=== PATIENT | female | born 1985 | race Two or more races ===

== ENCOUNTER 2023-04-17 05:25 | Inpatient (IN) | payer MEDICAID, OTHER ==
[~2023-04-17] VITALS: Ht 162.6 cm; Wt 76.7 kg
[2023-04-17] MEDS ORDERED: CITA-144 PO (05:57)
[2023-04-17] MEDS ORDERED: DIAZ-328 PO (05:57)
[2023-04-17] MEDS ORDERED: QUET25TA PO (05:57)
[2023-04-17] MEDS ORDERED: QUEtiapine FUMARATE 25 MG TABLET PO ONE ×3 (07:00→21:30)
[2023-04-17] MEDS ORDERED: DiphenhydrAMINE HCL 25 MG CAPSULE PO ONE ×2 (07:00→22:45)
[2023-04-17] MEDS ORDERED: LORazepam 1 MG TABLET PO ONE (07:00)
[2023-04-17] MEDS ORDERED: HALOPERIDOL 5 MG TABLET PO PRN (09:30)
[2023-04-17] MEDS ORDERED: ZOLPIDEM TARTRATE 10 MG TABLET PO PRN (09:30)
[2023-04-17 11:32] LABS: BASOPHILS % (AUTO) 0.1 % (0.0-2.0); EOSINOPHILS % (AUTO) 1.1 % (1.0-6.0); HEMATOCRIT 37.3 % (36-46); LYMPHOCYTES # (AUTO) 2.3 K/uL (1.0-4.8); LYMPHOCYTES % (AUTO) 26.8 % (22.0-44.0); MEAN CORPUSCULAR HEMOGLOBIN 28.2 pg (26.0-34.0); MEAN CORPUSCULAR HGB CONC 32.1 G/dL (31.0-37.0); MEAN CORPUSCULAR VOLUME 88 fL (80-100); MONOCYTES # (AUTO) 0.8 K/uL (0.1-1.0); MONOCYTES % (AUTO) 9.6 % (2.0-9.0); NEUTROPHILS # (AUTO) 5.3 K/uL (1.8-7.7); NEUTROPHILS % (AUTO) 62.4 % (40.0-70.0); PLATELET COUNT (AUTO) 299 K/uL (150-450); RED BLOOD CELL COUNT(AUTO) 4.25 MIL/uL (4.00-5.20); RED CELL DISTRIBUTION WIDTH 16.8 % (11.5-14.5); WHITE BLOOD COUNT (AUTO) 8.5 K/uL (4.5-11.0)
[2023-04-17] MEDS: LORazepam 2 MG TABLET PO PRN ×2 (11:50→18:54)
[2023-04-17 11:53] LABS: ALCOHOL, BLOOD (SERUM) < 3 mg/dL (0-10)
[2023-04-17 12:15] LABS: ANION GAP 10 mmol/L (8-16); CARBON DIOXIDE 23 mmol/L (22-29); CHLORIDE 106 mmol/L (98-107); CREATININE 0.73 mg/dL (0.60-1.30); GLOMERULAR FILTR. RATE CALC > 60 mL/min (>60); GLUCOSE,RANDOM 95 mg/dL (70-110); POTASSIUM 3.7 mmol/L (3.5-5.1); SODIUM SERUM 139 mmol/L (136-145); UREA NITROGEN, BLOOD 7 mg/dL (7-18)
[2023-04-17 12:23] LABS: ALANINE AMINOTRANSFERASE 24 U/L (12-78); ALBUMIN 3.6 g/dL (3.4-5.0); ALKALINE PHOSPHATASE 106 U/L (46-116); ASPARTATE AMINOTRANSFERASE 18 U/L (15-37); BILIRUBIN,TOTAL 0.5 mg/dL (0.1-1.0)
[2023-04-17 12:48] LABS: COVID AG,FIA SOURCE NASAL SWAB
[2023-04-17 13:17] LABS: SARS-COV2 (COVID) ANTIGEN,FIA Negative (Negative)
[2023-04-17] MEDS ORDERED: QUET50TA24 PO (21:24)
[2023-04-17] MEDS ORDERED: LORazepam 2 MG TABLET PO ONE (22:45)
[2023-04-18 11:47] VITALS: BP 99/59; PULSE 68; RESP 18; TEMP 97.3; O2SAT 95
[2023-04-18] MEDS ORDERED: INFLUENZA VIRUS VACCINE QVS 2023-24 (6MO+)/PF 60 MCG/0.5 ML SYRINGE IM. ONE (13:15)
[2023-04-18] MEDS ORDERED: PNEUMOCOCCAL VACCINE POLYVALENT 0.5 ML SYRINGE [PPSV23] IM. ONE (13:15)
[2023-04-18] MEDS: LORazepam 2 MG TABLET PO PRN (14:00)
[2023-04-18] MEDS: LITHIUM CARBONATE 300 MG CAPSULE PO SCH (17:00)
[2023-04-18] MEDS: DIVALPROEX SODIUM 500 MG DR TABLET PO SCH (17:00)
[2023-04-18] MEDS ORDERED: BACITRACIN 28 GM OINTMENT TP PRN (17:30)
[2023-04-18] MEDS ORDERED: BENZOCAINE/MENTHOL LOZENGE PO PRN (17:30)
[2023-04-18] MEDS ORDERED: IBUPROFEN 600 MG TABLET PO PRN (17:30)
[2023-04-18] MEDS ORDERED: MAG HYDROX/ALUMINUM HYD/SIMETH ES 30 ML SUSPENSION UDCUP PO PRN (17:30)
[2023-04-18] MEDS ORDERED: ACETAMINOPHEN 325 MG TABLET PO PRN (17:30)
[2023-04-18] MEDS ORDERED: CloNIDine HCL 0.1 MG TABLET PO PRN (17:30)
[2023-04-18] MEDS ORDERED: LOPERAMIDE HCL 2 MG CAPSULE PO PRN (17:30)
[2023-04-18] MEDS ORDERED: MAGNESIUM HYDROXIDE SUSPENSION 30 ML UDCUP PO PRN (17:30)
[2023-04-18] MEDS ORDERED: ALBUTEROL SULFATE HFA 90 MCG/PUFF 8 GM INHALER IH PRN (17:30)
[2023-04-18] MEDS ORDERED: DOCUSATE SODIUM 100 MG CAPSULE PO PRN (17:30)
[2023-04-18] MEDS ORDERED: ONDANSETRON HCL 4 MG TABLET PO PRN (17:30)
[2023-04-18] MEDS ORDERED: PETROLATUM,WHITE 28 GM JELLY TP PRN (17:30)
[2023-04-18] MEDS ORDERED: OMEPRAZOLE 20 MG CAPSULE PO PRN (17:30)
[2023-04-18 20:03] VITALS: BP 104/78; PULSE 82; RESP 18; TEMP 97.9; O2SAT 97
[2023-04-18 21:04] VITALS: BP 104/78; PULSE 82; RESP 18; TEMP 97.4
[2023-04-19] MEDS ORDERED: LEVOTHYROXINE SODIUM 75 MCG TABLET PO SCH (07:00)
[2023-04-19] MEDS ORDERED: FERROUS SULFATE 325 MG EC TABLET PO SCH (07:30)
[2023-04-19 08:53] VITALS: BP 116/67; PULSE 81; RESP 18; TEMP 97.7
[2023-04-19] MEDS: LITHIUM CARBONATE 300 MG CAPSULE PO SCH (09:00)
[2023-04-19] MEDS ORDERED: OMEPRAZOLE 20 MG CAPSULE PO SCH (09:00)
[2023-04-19] MEDS: DIVALPROEX SODIUM 500 MG DR TABLET PO SCH (09:00)
[2023-04-19] MEDS ORDERED: LITH300C3 PO (09:36)
[2023-04-19] MEDS ORDERED: DIVA-112 PO (09:37)
[2023-04-19] MEDS ORDERED: FERR-82 PO (09:59)
[2023-04-19] MEDS ORDERED: LEVO25TA9 PO (09:59)
== END 2023-04-19 17:23 | disposition home or self-care (01) | DRG 753 ==
LOC: EMS 05:26 → 3EI 04-18 10:14 → 3EX 04-18 14:20
PROVIDERS: ADMIT Psychiatry & Neurology Psychiatry; ATTEND Psychiatry & Neurology Psychiatry
DX: F31.9 Bipolar disorder, unspecified (principal); R45.851 Suicidal ideations; E03.9 Hypothyroidism, unspecified; F43.10 Post-traumatic stress disorder, unspecified; G47.00 Insomnia, unspecified; F17.210 Nicotine dependence, cigarettes, uncomplicated; I10 Essential (primary) hypertension; K21.9 Gastro-esophageal reflux disease without esophagitis; K59.00 Constipation, unspecified; Z79.899 Other long term (current) drug therapy
CPT/HCPCS: 80053; 85025; 99285; G0378; G0480